=== PATIENT | male | born 1970 | race Caucasian/White ===

== ENCOUNTER 2020-07-11 16:55 | Inpatient (IN) | payer MEDICAID ==
[~2020-07-11] VITALS: Ht 160 cm; Wt 87.0 kg
[2020-07-11] VITALS: BP 152/70
[2020-07-11] MEDS ORDERED: HYDROCODONE/ACETAMINOPHEN 5/325MG TABLET PO STA (18:10)
[2020-07-11] MEDS ORDERED: VANCOMYCIN 1 G PREMIX 200 ML IV ONE (18:15)
[2020-07-11] MEDS ORDERED: SODIUM CHLORIDE 0.9% 1000ML BAG (SEPSIS BOLUS) IV ONE (18:15)
[2020-07-11] MEDS ORDERED: CEFTRIAXONE 1 G PREMIX 50 ML IV ONE (18:15)
[2020-07-11 18:45] LABS: CHLORIDE 100 mEq/L (98-107)
[2020-07-11 18:46] LABS: HEMATOCRIT. 41.7 % (42.0-52.0); MEAN CORPUSCULAR HEMOGLOBIN 32.7 pg (28.0-32.0); MEAN CORPUSCULAR VOLUME 97.2 fL (80.0-94.0); MEAN PLATELET VOLUME 10.5 fl (7.4-10.4); PLATELET 150 x1000/uL (130-400); RED BLOOD CELL COUNT 4.29 mill/uL (4.7-6.1); RED CELL DISTRIBUTION WIDTH 13.8 % (11.6-14.6)
[2020-07-11] MEDS ORDERED: LABETALOL 5MG/ML SYR 20 MG/4 ML SYRINGE IV NR (19:00)
[2020-07-11] MEDS ORDERED: POTASSIUM CHLORIDE 20MEQ TABLET SR PO NR (19:15)
[2020-07-11 19:26] LABS: PLATELET ESTIMATE NORMAL
[2020-07-11 20:00] LABS: INR 1.4; PROTHROMBIN TIME 14.9 sec (9.6-11.0)
[2020-07-11] MEDS ORDERED: ZOLPIDEM TARTRATE 5MG TABLET PO PRN (20:15)
[2020-07-11] MEDS ORDERED: ACETAMINOPHEN 325MG TABLET PO PRN ×2 (20:15)
[2020-07-11] MEDS ORDERED: NITROGLYCERIN 0.4MG TABLET SL SL PRN (20:15)
[2020-07-11] MEDS ORDERED: DOCUSATE SODIUM 100MG CAPSULE PO PRN (20:15)
[2020-07-11] MEDS ORDERED: GUAIFENESIN 200MG/10ML SUGAR FREE UDC PO PRN (20:15)
[2020-07-11] MEDS ORDERED: ONDANSETRON HCL 4MG/2ML INJ IV PRN (20:15)
[2020-07-11] MEDS ORDERED: MAGNESIUM/ALUMINUM HYDROXIDE/SIMETHICONE 30ML UDC PO PRN (20:15)
[2020-07-11] MEDS ORDERED: IPRATROPIUM/ALBUTEROL 0.5-3(2.5)MG/3ML NEB NEB PRN (20:15)
[2020-07-11] MEDS ORDERED: CLONIDINE 0.1MG TABLET PO PRN (20:15)
[2020-07-11] MEDS ORDERED: KETOROLAC 15MG/ML VIAL IV PRN (20:28)
[2020-07-11] MEDS ORDERED: PIPERACILLIN/TAZ 3.375G PREMIX 50 ML IV SCH (20:30)
[2020-07-11 20:41] LABS: ETHANOL BLOOD < 10 mg/dL
[2020-07-11 20:43] LABS: TOTAL IRON BINDING CAPACITY 242 ug/dL (250-450)
[2020-07-11 20:44] LABS: LDL CHOLESTEROL 70 mg/dL (5-100)
[2020-07-11 20:45] LABS: HDL CHOLESTEROL 33 mg/dL (40-59)
[2020-07-11] MEDS ORDERED: KCL 20MEQ/100ML PREMIX 100 ML IV NR (21:00)
[2020-07-11] MEDS: METOPROLOL TARTRATE 25MG TABLET PO SCH (21:00)
[2020-07-11] MEDS ORDERED: ENOXAPARIN 40MG/0.4ML SYR SUBCUT SCH (21:00)
[2020-07-11] MEDS: AMLODIPINE 10MG TABLET PO SCH (21:01)
[2020-07-11] MEDS: FAMOTIDINE 20MG TABLET PO SCH (21:09)
[2020-07-11] MEDS: ASCORBIC ACID 500 MG TABLET PO SCH (21:09)
[2020-07-11 21:13] LABS: FOLIC ACID (FOLATE) SERUM 17.9 ng/mL (>5.38)
[2020-07-11 22:49] LABS: CREATINE KINASE 51 IU/L (39-308)
[2020-07-11 22:50] LABS: CREATINE KINASE MB FRACTION 1.5 ng/mL (0.5-3.6)
[2020-07-12 00:05] VITALS: BP 152/70
[2020-07-12] MEDS ORDERED: VANCOMYCIN 750 MG PREMIX 150 ML IV SCH (02:00)
[2020-07-12] MEDS: PIPERACILLIN/TAZOBACTAM 3.375 G in DEXT 5% WATER 100 ML IV SCH ×3 (02:52→17:12)
[2020-07-12 04:00] VITALS: BP 136/61
[2020-07-12] MEDS: VANCOMYCIN 750 MG PREMIX 150 ML IV SCH ×2 (04:32→12:32)
[2020-07-12 06:21] LABS: HEMATOCRIT. 39.6 % (42.0-52.0); HEMOGLOBIN. 13.2 g/dL (14.0-18.0); MEAN CORPUSCULAR HEMOGLOBIN 32.8 pg (28.0-32.0); MEAN CORPUSCULAR VOLUME 98.3 fL (80.0-94.0); MEAN PLATELET VOLUME 10.1 fl (7.4-10.4); PLATELET 133 x1000/uL (130-400); RED BLOOD CELL COUNT 4.03 mill/uL (4.7-6.1); RED CELL DISTRIBUTION WIDTH 14.4 % (11.6-14.6)
[2020-07-12 06:32] LABS: CHLORIDE 108 mEq/L (98-107)
[2020-07-12 06:38] LABS: PHOSPHORUS 2.9 mg/dL (2.5-4.9)
[2020-07-12 06:41] LABS: CREATINE KINASE 49 IU/L (39-308)
[2020-07-12 06:45] LABS: CREATINE KINASE MB FRACTION 1.7 ng/mL (0.5-3.6)
[2020-07-12 08:00] VITALS: BP 158/73
[2020-07-12] MEDS ORDERED: ZINC SULFATE 220 MG ( 50 ) CAPSULE PO SCH (09:00)
[2020-07-12] MEDS ORDERED: CHOLECALCIFEROL (D3) 1000 UNIT TABLET PO SCH (09:00)
[2020-07-12] MEDS: FAMOTIDINE 20MG TABLET PO SCH (09:05)
[2020-07-12] MEDS: AMLODIPINE 10MG TABLET PO SCH (09:06)
[2020-07-12] MEDS: ASCORBIC ACID 500 MG TABLET PO SCH (09:06)
[2020-07-12] MEDS: METOPROLOL TARTRATE 25MG TABLET PO SCH (09:07)
[2020-07-12 12:00] VITALS: BP 131/56
[2020-07-12 13:06] LABS: PLATELET ESTIMATE NORMAL
[2020-07-12 16:00] VITALS: BP 131/57
== END 2020-07-12 18:55 | disposition left against medical advice (07) | DRG 720 ==
LOC: ER 16:55 → ENRESERV 21:13 → 8WST 23:25
PROVIDERS: ADMIT Internal Medicine; ATTEND Internal Medicine
DX: A41.9 Sepsis, unspecified organism (principal); E44.1 Mild protein-calorie malnutrition; L03.116 Cellulitis of left lower limb; E87.1 Hypo-osmolality and hyponatremia; E87.6 Hypokalemia; I10 Essential (primary) hypertension; I16.1 Hypertensive emergency; Z68.34 Body mass index [BMI] 34.0-34.9, adult; Z53.29 Procedure and treatment not carried out because of patient's decision for other reasons
CPT/HCPCS: 36415; 76705; 80053; 80061; 80320; 82550; 82553; 82607; 82746; 83036; 83540; 83550; 83605; 83735; 84100; 84145; 84484; 85025; 93005; 93971; 99285; J0696; J1650; J2543; J3370; J3480; J3490; J7030; J7040; J7060; G0480

== ENCOUNTER 2020-11-19 12:24 | Inpatient (IN) | payer MEDICAID, OTHER ==
[~2020-11-19] VITALS: Ht 162.6 cm; Wt 82.6 kg
[2020-11-19 13:13] LABS: CHLORIDE 103 mEq/L (98-107)
[2020-11-19] MEDS ORDERED: IBUPROFEN 400MG TABLET PO ONE (13:15)
[2020-11-19 13:26] LABS: BASOPHILS % 0.2 % (0.0-2.0); EOSINOPHILS % 0.1 % (0.0-5.0); LYMPHOCYTES % 7.6 % (20.0-50.0); MEAN CORPUSCULAR HEMOGLOBIN 30.8 pg (28.0-32.0); MEAN CORPUSCULAR VOLUME 98.6 fL (80.0-94.0); MEAN PLATELET VOLUME 10.6 fl (7.4-10.4); MONOCYTES % 11.4 % (2.0-8.0); NEUTROPHILS % 80.7 % (40.0-76.0); PLATELET 196 x1000/uL (130-400); RED BLOOD CELL COUNT 1.78 mill/uL (4.7-6.1); RED CELL DISTRIBUTION WIDTH 14.7 % (11.6-14.6)
[2020-11-19 13:29] LABS: INR 1.6; PARTIAL THROMBOPLASTIN TIME 26.5 sec (23.4-31.0); PROTHROMBIN TIME 16.2 sec (9.6-11.0)
[2020-11-19 13:30] LABS: HEMATOCRIT. 17.6 % (42.0-52.0); HEMOGLOBIN. 5.5 g/dL (14.0-18.0)
[2020-11-19] MEDS ORDERED: POTASSIUM CHLORIDE 20MEQ TABLET SR PO ONE (16:45)
[2020-11-19] MEDS ORDERED: LORAZEPAM 2MG/ML CPJ IV PRN (18:30)
[2020-11-19 20:00] VITALS: BP 156/68
[2020-11-19 20:42] VITALS: BP 156/68
[2020-11-19] MEDS ORDERED: INFLUENZA VACCINE 05/PF 0.5 ML SYRINGE IM ONE (23:00)
[2020-11-20] VITALS (14 sets, daily range): BP systolic 125–155; BP diastolic 49–79
[2020-11-20] MEDS: THIAMINE HCL 200 MG in SODIUM CHLORIDE 0.9% 100 ML IV SCH ×2 (01:24→21:49)
[2020-11-20 06:50] LABS: MEAN CORPUSCULAR HEMOGLOBIN 32.1 pg (28.0-32.0); MEAN CORPUSCULAR VOLUME 94.5 fL (80.0-94.0); MEAN PLATELET VOLUME 10.4 fl (7.4-10.4); PLATELET 143 x1000/uL (130-400); RED BLOOD CELL COUNT 1.73 mill/uL (4.7-6.1); RED CELL DISTRIBUTION WIDTH 15.6 % (11.6-14.6)
[2020-11-20 07:02] LABS: HEMATOCRIT. 16.4 % (42.0-52.0); HEMOGLOBIN. 5.6 g/dL (14.0-18.0)
[2020-11-20 07:14] LABS: CHLORIDE 106 mEq/L (98-107)
[2020-11-20 07:22] LABS: TOTAL IRON BINDING CAPACITY 247 ug/dL (250-450)
[2020-11-20] MEDS ORDERED: POTASSIUM CHLORIDE 20MEQ TABLET SR PO NR ×3 (10:45→15:00)
[2020-11-20] MEDS ORDERED: POTASSIUM CHLORIDE 20MEQ TABLET SR PO SCH (12:00)
[2020-11-20] MEDS: IRON SUCROSE COMPLEX 100 MG/5 ML ML IV SCH (12:12)
[2020-11-20 17:17] LABS: PLATELET ESTIMATE NORMAL
[2020-11-20] MEDS: PANTOPRAZOLE SODIUM 40 MG/VIAL IV SCH ×2 (18:17→21:49)
[2020-11-20] MEDS ORDERED: CLONIDINE 0.1MG TABLET PO PRN (21:00)
[2020-11-21 00:45] LABS: HEMATOCRIT 22.6 % (42.0-52.0); HEMOGLOBIN 7.6 g/dL (14.0-18.0)
[2020-11-21 01:17] LABS: INR 1.5; PROTHROMBIN TIME 15.6 sec (9.6-11.0)
[2020-11-21 04:00] VITALS: BP 130/64
[2020-11-21 06:46] LABS: CHLORIDE 105 mEq/L (98-107)
[2020-11-21 06:48] LABS: INR 1.4; PROTHROMBIN TIME 14.6 sec (9.6-11.0)
[2020-11-21 06:52] LABS: HEMATOCRIT. 25.7 % (42.0-52.0); HEMOGLOBIN. 8.6 g/dL (14.0-18.0); MEAN CORPUSCULAR HEMOGLOBIN 31.9 pg (28.0-32.0); MEAN CORPUSCULAR VOLUME 95.7 fL (80.0-94.0); MEAN PLATELET VOLUME 10.5 fl (7.4-10.4); PLATELET 172 x1000/uL (130-400); RED BLOOD CELL COUNT 2.68 mill/uL (4.7-6.1); RED CELL DISTRIBUTION WIDTH 15.5 % (11.6-14.6)
[2020-11-21 07:33] LABS: VITAMIN B12 SERUM >2000 pg/mL pg/mL (211-911)
[2020-11-21 08:00] VITALS: BP 150/50
[2020-11-21] MEDS: PANTOPRAZOLE SODIUM 40 MG/VIAL IV SCH ×2 (08:45→17:12)
[2020-11-21] MEDS: IRON SUCROSE COMPLEX 100 MG/5 ML ML IV SCH (08:46)
[2020-11-21] MEDS ORDERED: POTASSIUM CHLORIDE INJ 40 MEQ in DEXT 5% WATER 250 ML IV SCH (11:00)
[2020-11-21 12:00] VITALS: BP 115/77
[2020-11-21] MEDS ORDERED: PROPOFOL 200MG/20ML VIAL IV ONE (15:20)
[2020-11-21] MEDS ORDERED: POTASSIUM CHLORIDE INJ 30 MEQ in DEXT 5% WATER 250 ML IV NR (16:00)
[2020-11-21 16:47] VITALS: BP 158/67
[2020-11-21 17:35] LABS: HEPATITIS B SURFACE ANTIGEN NEGATIVE
[2020-11-21 17:57] LABS: NUCLEATED RED BLOOD CELLS 2 /100 WBC; PLATELET ESTIMATE NORMAL
[2020-11-21 18:10] LABS: FERRITIN 117 ng/mL (22-322)
[2020-11-21 19:52] VITALS: BP 161/80
[2020-11-21 19:54] LABS: HEMATOCRIT 24.3 % (42.0-52.0); HEMOGLOBIN 7.9 g/dL (14.0-18.0); MEAN CORPUSCULAR HEMOGLOBIN 32.1 pg (28.0-32.0); MEAN CORPUSCULAR VOLUME 97.9 fL (80.0-94.0); PLATELET 197 x1000/uL (130-400); RED BLOOD CELL COUNT 2.48 mill/uL (4.7-6.1); RED CELL DISTRIBUTION WIDTH 15.5 % (11.6-14.6)
[2020-11-21 19:59] LABS: CHLORIDE 108 mEq/L (98-107)
[2020-11-22] VITALS: BP 149/61
[2020-11-22 04:00] VITALS: BP 129/63
[2020-11-22 08:00] VITALS: BP 132/67
[2020-11-22] MEDS: IRON SUCROSE COMPLEX 100 MG/5 ML ML IV SCH (08:55)
[2020-11-22] MEDS: PANTOPRAZOLE SODIUM 40 MG/VIAL IV SCH (08:55)
[2020-11-22] MEDS ORDERED: FOLIC ACID 1MG TABLET PO SCH (09:00)
[2020-11-22] MEDS ORDERED: PROPRANOLOL HCL 10MG TABLET PO SCH (10:30)
[2020-11-22] MEDS ORDERED: POTASSIUM CHLORIDE 20MEQ TABLET SR PO NR (11:45)
[2020-11-22 12:00] VITALS: BP 153/74
[2020-11-22] MEDS ORDERED: FAMO20TA8 MT (12:50)
[2020-11-22] MEDS ORDERED: FOLI-43 PO (12:50)
[2020-11-22] MEDS ORDERED: PROP10TA10 PO (12:50)
[2020-11-22] MEDS ORDERED: FERR325T6 MT (14:50)
[2020-11-22 14:51] VITALS: BP 153/74
== END 2020-11-22 16:16 | disposition home or self-care (01) | DRG 280 ==
LOC: ER 12:24 → EDBEDREQ 16:16 → EDBEDREQTM 16:16 → ENRESERV 18:06 → 6WST 20:48 → 6EST 11-22 10:06
PROVIDERS: ADMIT Family Medicine Adult Medicine; ATTEND Internal Medicine
PROC: 30233N1 Transfusion of Nonautologous Red Blood Cells into Peripheral Vein, Percutaneous Approach (ICD-10-PCS; 2020-11-19)
PROC: 0DB78ZX Excision of Stomach, Pylorus, Via Natural or Artificial Opening Endoscopic, Diagnostic (ICD-10-PCS; principal; 2020-11-21)
PROC: 06L38CZ Occlusion of Esophageal Vein with Extraluminal Device, Via Natural or Artificial Opening Endoscopic (ICD-10-PCS; 2020-11-21)
DX: K70.31 Alcoholic cirrhosis of liver with ascites (principal); I81 Portal vein thrombosis; I85.11 Secondary esophageal varices with bleeding; K29.71 Gastritis, unspecified, with bleeding; E44.0 Moderate protein-calorie malnutrition; D68.9 Coagulation defect, unspecified; K76.6 Portal hypertension; D50.9 Iron deficiency anemia, unspecified; K80.20 Calculus of gallbladder without cholecystitis without obstruction; E87.6 Hypokalemia; I10 Essential (primary) hypertension; Z20.822 Contact with and (suspected) exposure to COVID-19; D72.829 Elevated white blood cell count, unspecified; K44.9 Diaphragmatic hernia without obstruction or gangrene; K31.89 Other diseases of stomach and duodenum; F10.10 Alcohol abuse, uncomplicated; Y90.9 Presence of alcohol in blood, level not specified; Z68.31 Body mass index [BMI] 31.0-31.9, adult
CPT/HCPCS: 36415; 71045; 73610; 73630; 76705; 80048; 80053; 80076; 82105; 82140; 82248; 82607; 82728; 82746; 83540; 83550; 83615; 83880; 84484; 85014; 85018; 85025; 85027; 85049; 85384; 86705; 86709; 86803; 86850; 86900; 86920; 87340; 87426; 88305; 88312; 88313; 90686; 93005; 93970; 97162; 97166; 99285; C9113; J2704; J3411; J3480; J7040; J7050; J7060; P9016

== ENCOUNTER 2020-11-30 12:15 | Emergency (ER) | payer MEDICAID, OTHER ==
[~2020-11-30] VITALS: Ht 165.1 cm; Wt 91.0 kg
[~2020-11-30 12:15] MED LIST: FAMO20TA8 MT; FERR325T6 MT; FOLI-43 PO; PROP10TA10 PO
[2020-11-30] MEDS ORDERED: HYDROCODONE/ACETAMINOPHEN 5/325MG TABLET PO ONE (12:45)
[2020-11-30] MEDS ORDERED: TRAM50TA3 MT (14:52)
[2020-11-30 18:31] VITALS: BP 116/67
== END 2020-11-30 18:43 | disposition home or self-care (01) ==
LOC: ER 12:15
DX: K74.60 Unspecified cirrhosis of liver (principal); I10 Essential (primary) hypertension; Z98.890 Other specified postprocedural states
CPT/HCPCS: 72100; 73521; 93005; 99285

== ENCOUNTER 2020-12-07 09:19 | Emergency (ER) | payer MEDICAID ==
[~2020-12-07] VITALS: Ht 167.6 cm; Wt 86.0 kg
[~2020-12-07 09:19] MED LIST changes: +TRAM50TA3 MT
[2020-12-07 09:29] VITALS: BP 122/64
[2020-12-07 11:53] LABS: HEMATOCRIT. 28.7 % (42.0-52.0); HEMOGLOBIN. 9.4 g/dL (14.0-18.0); MEAN CORPUSCULAR HEMOGLOBIN 30.5 pg (28.0-32.0); MEAN CORPUSCULAR VOLUME 93.5 fL (80.0-94.0); MEAN PLATELET VOLUME 8.4 fl (7.4-10.4); PLATELET 188 x1000/uL (130-400); RED BLOOD CELL COUNT 3.07 mill/uL (4.7-6.1); RED CELL DISTRIBUTION WIDTH 17.9 % (11.6-14.6)
[2020-12-07 11:55] LABS: CHLORIDE 106 mEq/L (98-107)
[2020-12-07 11:59] LABS: INR 1.2; PARTIAL THROMBOPLASTIN TIME 32.2 sec (23.4-31.0); PROTHROMBIN TIME 13.1 sec (9.6-11.0)
[2020-12-07 12:00] LABS: ETHANOL BLOOD < 10 mg/dL
[2020-12-07 12:25] LABS: PLATELET ESTIMATE NORMAL
== END 2020-12-07 18:34 | disposition left against medical advice (07) ==
LOC: ER 09:19
DX: Z53.21 Procedure and treatment not carried out due to patient leaving prior to being seen by health care provider (principal); I10 Essential (primary) hypertension; K74.60 Unspecified cirrhosis of liver; Z79.899 Other long term (current) drug therapy; Z98.890 Other specified postprocedural states
CPT/HCPCS: 36415; 80053; 83690; 85025; 85610; 85730; 93005; G0480; 80320; 99284